=== PATIENT | male | born 1980 | race Hispanic/Latino ===

== ENCOUNTER 2024-01-23 18:30 | Emergency (ER) | payer OTHER ==
[~2024-01-23] VITALS: Ht 165.1 cm; Wt 74.8 kg
[2024-01-23 19:00] VITALS: PULSE 55; RESP 18; TEMP 98.6
[2024-01-23] MEDS: KETOROLAC TROMETHAMINE 30 MG/ML VIAL IV STA (21:02)
[2024-01-23 21:04] VITALS: BP 134/84; PULSE 74; RESP 18; TEMP 98; O2SAT 100
== END 2024-01-23 20:20 | disposition home or self-care (01) ==
LOC: FSED 18:56
DX: R07.89 Other chest pain (principal); X50.0XXA Overexertion from strenuous movement or load, initial encounter; Y92.89 Other specified places as the place of occurrence of the external cause
CPT/HCPCS: 93005; 99284